=== PATIENT | female | born 1985 | race Caucasian/White ===

== ENCOUNTER → 2016-04-24 | Outpatient (CLI) | payer OTHER ==
--- NOTE | 2016-04-24 12:07 | REP ---
First trimester OB sonography: History: Supervision of . Findings: Transabdominal and transvaginal scanning are performed. A single living intrauterine gestation is seen. The crown-rump length of the embryonic pole is 26 mm. This corresponds with a gestational age estimate of 9 weeks 2 days. heart rate is recorded at 163 beats per minute. There is a right maternal ovarian cyst seen consistent with corpus luteum cyst. This measures 19 mm. No complication is identified. Impression: Viable single intrauterine gestation at 9 weeks 2 days by crown-rump length. MARYANA by sonography November 25, 2016. Signed by Duane Greenberg MD 04/24/2016 03:09 P
== END ==
LOC: M RAD 10:21
PROVIDERS: ATTEND Obstetrics & Gynecology
DX: Z36 Encounter for antenatal screening of mother (principal)

== ENCOUNTER → 2016-06-06 | Outpatient (CLI) | payer OTHER ==
--- NOTE | 2016-06-06 20:24 | ECGEPIP ---
Stationary ECG Study [facility] Test Date: 2016-06-06 Pat Name: MAGDI POLANCO Department: Room: - Gender: F Assistant Elementary Teacher: GENIA : 1985 Requested By: ARIE Turner Order Number: [id number] Reading MD: Mark Malone Measurements Intervals [place] Rate: 83 P: 57 CO: 120 QRS: 60 QRSD: 97 T: 51 QT: 378 QTc: 445 Interpretive Statements SINUS RHYTHM Nonspecific ST abnormalities Significant artifact Comparison tracing not on file Electronically Signed On 06-06-2016 20:24:21 EST by Mark Malone
== END ==
LOC: M EKG 10:29
PROVIDERS: ATTEND Student in an Organized Health Care Education/Training Program

== ENCOUNTER 2016-11-14 11:34 | Inpatient (IN) | payer OTHER ==
[2016-11-14] VITALS (8 sets, daily range): BP systolic 129–143; BP diastolic 76–100
[~2016-11-14] VITALS: Ht 162.6 cm; Wt 114.0 kg
[~2016-11-14 11:34] MED LIST: INSUH10VL SC; INSUN SC; LEXA1TAB2 PO; PRENTAB55 PO; RANI150C PO; TRAZ-136 PO; TYLE325C PO
[2016-11-14] MEDS ORDERED: LR 1,000 ML IV SCH ×2 (13:00→21:00)
[2016-11-14] MEDS ORDERED: LACTATED RINGER'S 1000 ML IV STA (13:06)
[2016-11-14] MEDS ORDERED: BICITRA 30ML SOLN UDC PO ONE (13:15)
--- NOTE | 2016-11-14 13:30 | IPNPDOC ---
Text Note Date of Service The patient was seen on 11/14/16. NOTE admit note. See H&P in chart done yesterday by Dr Miranda Mrs Zarco is currently at 38+3 and yesterday was ruled in for pre-eclampsia without severe features. She has 2 prior deliveries and moderately controlled GDMA2 on insulin. She has not had any insulin today and her BS just now was 61 and she feels well, has had nl FM throughout the day today and only rare ctx's. She also has well controlled depression/anxiety on lexapro and trazadone. BP is now 130/81. She plans to nurse if she can. She is a nonsmoker and has had no drugs or etoh this . NKDA. Consent obtained for ERCS + BTL that will be done later today. Sessions MD REEVES,CHUN Johansen MD Nov 14, 2016 13:30
[2016-11-14 13:50] LABS: MEAN CORPUSCULAR HEMOGLOBIN 26.7 pg (27.0-33.0); MEAN CORPUSCULAR HGB CONC 32.8 g/dl (32.0-36.5); MEAN CORPUSCULAR VOLUME 81.3 fl (80.0-96.0); RED CELL DISTRIBUTION WIDTH 16.1 % (11.5-14.5); WHITE BLOOD COUNT 10.3 K/mm3 (4.0-10.0)
[2016-11-14] MEDS ORDERED: MORPHINE PRES-FREE INJ 10 MG/10 ML VIAL (J2274) As Ordered ONE (17:43)
[2016-11-14] MEDS ORDERED: OXYTOCIN INJ 10 UNITS/ML VIAL (J2590) As Ordered ONE (17:44)
[2016-11-14] MEDS ORDERED: KETOROLAC 60 MG/2 ML VIAL (J1885) As Ordered ONE (17:56)
[2016-11-14] MEDS ORDERED: ONDANSETRON 4MG/2ML VIAL (J2405) As Ordered ONE (17:56)
[2016-11-14] MEDS ORDERED: METOCLOPRAMIDE INJ 10MG/2ML VIAL (J2765) IV PRN ×2 (18:57→21:00)
[2016-11-14] MEDS ORDERED: NALBUPHINE HCL 10 MG/ML AMP (J2300) IV PRN (18:57)
[2016-11-14] MEDS ORDERED: NALOXONE INJ 0.4 MG/1 ML VIAL (J2310) IV PRN ×2 (18:57)
[2016-11-14] MEDS ORDERED: ONDANSETRON 4MG/2ML VIAL (J2405) IV PRN ×2 (18:57→21:00)
[2016-11-14] MEDS ORDERED: PHENYLephrine HCL 500 MCG/5 ML (100MCG/ML) SYRINGE (J2370) As Ordered ONE (19:22)
[2016-11-14] MEDS ORDERED: ePHEDrine SULFATE 25 MG/5 ML(5MG/ML) SYRINGE As Ordered ONE (19:22)
[2016-11-14] MEDS ORDERED: OXYTOCIN 30 UNITS IN 0.9% NaCl 500ML IV BAG (J2590) As Ordered ONE (20:04)
[2016-11-14] MEDS: LR 1,000 ML IV SCH (20:04)
[2016-11-14] MEDS ORDERED: MEASLES,MUMPS,RUBELLA VACCINE INJ (MMR-II) (90707) SC SCH (20:15)
[2016-11-14] MEDS ORDERED: PERCOCET 5MG/325MG TAB PO PRN ×3 (20:15→21:00)
[2016-11-14] MEDS ORDERED: RHOGAM 300 MCG (1500 IU) INJ (J2790) IM SCH (20:15)
[2016-11-14] MEDS: DOCUSATE SODIUM 100 MG CAP PO SCH (21:00)
[2016-11-14] MEDS ORDERED: fentaNYL 100 MCG/2 ML INJECTION (J3010) IV PRN (21:00)
[2016-11-15] VITALS (7 sets, daily range): BP systolic 126–146; BP diastolic 66–88
[2016-11-15] MEDS: KETOROLAC 30 MG/ML VIAL (J1885) IV SCH ×4 (02:29→17:30)
[2016-11-15] MEDS: LR 1,000 ML IV SCH (02:31)
[2016-11-15 07:16] LABS: MEAN CORPUSCULAR HEMOGLOBIN 26.4 pg (27.0-33.0); MEAN CORPUSCULAR HGB CONC 32.2 g/dl (32.0-36.5); WHITE BLOOD COUNT 10.7 K/mm3 (4.0-10.0)
--- NOTE | 2016-11-15 07:58 | IPNPDOC ---
Text Note Date of Service The patient was seen on 11/15/16. NOTE POD1 prog note States feeling well, no complaints. No heavy VB. Pain controlled. Ambulatory. Centeno in place. Bonding well and breast feeding well. VSSAF CTAB RRR Ut at U-2, firm Ext no [employer] CDI, bandage removed UO adeq HCT this AM 31.2 DS this AM after clears overnight 117 a/p: Doing well. Metformin 500 BID to be started soon. Cont QID sugars, fasting and 2 hrs after each meal. Sessions Lucila GARNETT, I+O VSLucila I+O Laboratory Tests 11/14/16 13:27 Red Blood Count 4.22, Mean Corpuscular Volume 81.3, Mean Corpuscular Hemoglobin 26.7 L, Mean Corpuscular Hemoglobin Concent 32.8, Red Cell Distribution Width 16.1 H 11/15/16 06:57 Red Blood Count 3.80 L, Mean Corpuscular Volume 82.0, Mean Corpuscular Hemoglobin 26.4 L, Mean Corpuscular Hemoglobin Concent 32.2, Red Cell Distribution Width 16.0 H Vital Signs Date Time Temp Pulse Resp B/P (MAP) Pulse Ox O2 Delivery O2 Flow Rate FiO2 11/15/16 05:50 96.4 103 16 138/80 (99) 96 Room Air I&O- Last 24 Hours up to 6 AM 11/15/16 06:00 Output Total 1250 ml Balance -1250 ml SESSIONS,CHUN Johansen MD Nov 15, 2016 07:58
[2016-11-15] MEDS: DOCUSATE SODIUM 100 MG CAP PO SCH ×2 (08:27→21:24)
[2016-11-15] MEDS: ESCITALOPRAM OXALATE 10 MG TAB (LEXAPRO) PO SCH (08:28)
[2016-11-15] MEDS: metFORMIN (GLUCOPHAGE) 500 MG TAB PO SCH ×2 (08:28→17:30)
[2016-11-15] MEDS: PRENATAL VITAMINS CHEWABLE TABLET PO SCH (08:28)
[2016-11-15] MEDS ORDERED: traZODone 100 MG TAB PO SCH (21:00)
[2016-11-16] MEDS: IBUPROFEN 800 MG TAB PO SCH ×2 (01:44→08:07)
[2016-11-16 05:55] VITALS: BP 136/84
[2016-11-16] MEDS: DOCUSATE SODIUM 100 MG CAP PO SCH (08:06)
[2016-11-16] MEDS: ESCITALOPRAM OXALATE 10 MG TAB (LEXAPRO) PO SCH (08:06)
[2016-11-16] MEDS: PRENATAL VITAMINS CHEWABLE TABLET PO SCH (08:06)
[2016-11-16] MEDS: metFORMIN (GLUCOPHAGE) 500 MG TAB PO SCH (08:07)
--- NOTE | 2016-11-16 08:39 | RO ---
DATE OF PROCEDURE: 11/14/2016 PREPROCEDURE DIAGNOSIS: section times two, preeclampsia with mild features diagnosed yesterday, type 2 insulin-dependent diabetes mellitus. POSTPROCEDURE DIAGNOSIS: section times two, preeclampsia with mild features diagnosed yesterday, type 2 insulin-dependent diabetes mellitus. PROCEDURE: Elective repeat section plus tubal ligation. SURGEON: Dr. Thierno Schwartz POWER TRANSFORMER REPAIR SUPERVISOR: Dr. Kayleigh Hood ANESTHESIA: Spinal. ESTIMATED BLOOD LOSS: 500 mL. DRAINS: 100 mL of urine in the Centeno catheter. FLUID REPLACED: 200 mL of D5 LR and 1100 mL of lactated Ringer's. PREOPERATIVE ANTIBIOTICS: Ancef 2 grams IV. SPECIMENS: Bilateral tubal segments. FINDINGS: Pfannenstiel skin incision, low transverse uterine incision, clear fluid, female infant weighing 4628 grams or 10 pounds 3 ounces, scores 9 and 9. INDICATIONS FOR PROCEDURE: The patient was scheduled for a repeat section and tubal ligation next week when she was 39 weeks. Today, she was 38 weeks and 3 days (38 and 3), was diagnosed with preeclampsia without severe features yesterday and was scheduled for this procedure after informed consent was obtained. Dr. Miranda made the diagnosis and set up her delivery by myself, Dr. Schwartz. When the patient came to the sofia, her blood sugar was normal, her blood pressure was normal and informed consent was obtained by me, the operating surgeon. DESCRIPTION OF PROCEDURE: The patient was taken to the operating room with an IV in place and a spinal anesthetic was easily obtained. She was then placed in a dorsal supine position with a leftward tilt and heart tones were normal. A Centeno catheter was then placed as well as lower extremity compression devices. A check of her lower abdomen confirmed that the spinal was working and the patient's was retrieved from the room. Pfannenstiel skin incision was carried down to the layer of the fascia, which was nicked in the midline and extended bilaterally the extent of the skin incision. Gerard clamps were used to elevate the fascial edges both superiorly and inferiorly and the underlying rectus muscles were dissected sharply with a scalpel. Using two snaps, we were able to successively separate the rectus in the midline and identify the peritoneum, which was tented up and entered sharply with Metzenbaum scissors. A quick exploration of her inner abdomen revealed a moderate amount of scar tissue of the anterior uterus to the anterior abdominal wall. With meticulous sharp and blunt dissection, we were able to separate the lion's share of the adhesive disease and a bladder flap was created. There was a significantly large adhesion just above the uterine incision on the patient's right, which we did not have to separate before delivering the infant. A low transverse uterine incision was performed this time and stretched to adequacy without difficulty. Amniotomy confirmed clear fluid. Infant's head was delivered in flexed position without difficulty and fundal pressure helped to deliver the rest of the obviously macrosomic . The was rigorous from the beginning with a good cry and great tone. Cord blood was obtained after the cord was transected and clamped. The vigorous infant was shown to the parents and handed off to the waiting resuscitation team. Placenta was delivered with traction and fundal massage with Pitocin running wide open. Could not deliver the uterus through the abdominal incision to perform the tubal ligation without transecting the aforementioned thick adhesion. This was clamped times one and transected close to the uterus. The clamp was left on the adhesion and the uterus was delivered through the incision, wrapped in a warm sponge and cleared of all clots and debris times two, including all trailing membranes. A running suture of #0 Vicryl was used to close this incision from left to right in a running locked fashion. A running suture of #0 Monocryl was then used to imbricate a second layer over the uterine incision from left to right without difficulty as well. At this point, a [place] tubal ligation was performed on the right without difficulty and hemostasis was noted. This was repeated on the patient's left in the same exact fashion without difficulty. The uterine side of the aforementioned transected thick adhesion was cauterized a small amount and when hemostasis was noted, the uterus was returned to the abdomen into its anatomical state. We quickly inspected both tubal sites, confirmed they were hemostatic and then looked at the adhesion site, which was also confirmed to be hemostatic. We then tied off the adhesion that was still clamped, removed the clamp and confirmed that hemostasis was also noted from the uterine incision. There were too many omental adhesions to be able to close the peritoneum safely. Therefore, this was left open but there was very little diastasis present. The fascia was closed from left to right with a running suture of #0 Vicryl without difficulty after confirming the rectus bellies were all hemostatic. The subcutaneous tissue was copiously irrigated, made to be hemostatic and closed with a #2-0 Vicryl running suture to close this potential space. Skin was then closed with a #4-0 running subcuticular Monocryl stitch. Steri-Strips were placed over the incision as well as a pressure dressing. The uterus was at U -1 and firm upon bimanual exam and a small amount of clots and debris was removed from the vagina and cervix. All sponge, needle and instrument counts were correct and done anytime a cavity was about to be closed.
[2016-11-16] MEDS ORDERED: METF500T13 PO (11:32)
[2016-11-16] MEDS ORDERED: OXYC1TAB23 PO (11:32)
[2016-11-16] MEDS ORDERED: COLA100C5 PO (11:32)
[2016-11-16] MEDS ORDERED: MOTR200T44 PO (11:33)
--- NOTE | 2016-11-17 06:50 | DSES ---
DATE OF ADMISSION: 11/14/2016 DATE OF DISCHARGE: 11/16/2016 This lady is a 31-year-old 5 now para 3 who was admitted at 38 and 3weeks of gestation for elective repeat section. Satisfied parity with bilateral tubal ligation. Operative note is not available at the present time. She delivered a female 10 pounds 3 ounces, 4628 grams. of 9 and 9 and one and five minutes respectively. She is a GDMA2. Was on insulin but not pre-delivery. She is normally on metformin 500 twice a day. She has had two previous sections. Has depression, anxiety, is on Lexapro and trazodone and she is planned for discharge. Her admitting hemoglobin 11.3, hematocrit 34.3, platelets 258. Discharge hemoglobin 10.0, hematocrit 31.2 platelets are 188. Her vital signs today: Her blood pressure is 136/84, they range about 141/86, 140/74. Temperature 96.9, pulse is 81, respirations are 20. She has had some spot sugars which have all been within normal range, they range anywhere from 61-128 and essentially they have been relatively good and the patient understands her condition and she is happy to continue on with her metformin. The rest of the examination is unremarkable. She is normocephalic, atraumatic. Neck: Full range of motion. Pupils equal and reactive to light. Distal pulses symmetric. No evidence of DVT, PE or superficial phlebitis. Lungs are clear bilaterally bases. No wheezes or rhonchi. No CVA tenderness. Abdomen soft, uterus two below. Lochia is moderate. Incision is clean and dry. Four quadrant bowel sounds are noted. She has no rashes, lesions or pruritus. No arthralgia, myalgia. No complaints of cough, wheezes, shortness of breath or dyspnea on exertion. No chest pain. No bleeding. Neuro complete. No incontinency, urgency or frequency. No nausea, vomiting, diarrhea, constipation. Diabetic issues as mentioned. No PBX REPAIRER issues. PAST SURGICAL HISTORY: Two previous sections. FAMILY HISTORY: Noncontributory. She does not smoke, drink, abuse drugs. There is no domestic violence. She is presently planning and doing breast-feeding. She has her medications at home, has a 2-week incision check, a 6-week check. The patient is to be discharged today and follow up given for baby as well as a planned visit in 2 weeks for incision check and repeat of her blood sugars at that time. In summary, we have a 38 and 3 week of gestation for repeat section, satisfied parity, tubal ligation, controlled GDMA2. Discharge improved.
== END 2016-11-16 11:50 | disposition home or self-care (01) | DRG 766 ==
LOC: M LDI 11:34 → M OBS 22:10
PROVIDERS: ADMIT Student in an Organized Health Care Education/Training Program; ATTEND Student in an Organized Health Care Education/Training Program
PROC: 0UB70ZZ Excision of Bilateral Fallopian Tubes, Open Approach (ICD-10-PCS; 2016-11-14)
PROC: 10D00Z1 Extraction of Products of Conception, Low, Open Approach (ICD-10-PCS; principal; 2016-11-14 15:15)
DX: O34.211 Maternal care for low transverse scar from previous cesarean delivery (principal); Z37.0 Single live birth; Z3A.38 38 weeks gestation of pregnancy; Z30.2 Encounter for sterilization; O24.425 Gestational diabetes mellitus in childbirth, controlled by oral hypoglycemic drugs; F41.9 Anxiety disorder, unspecified; F32.9 Major depressive disorder, single episode, unspecified; O99.344 Other mental disorders complicating childbirth; O14.04 Mild to moderate pre-eclampsia, complicating childbirth

== ENCOUNTER → 2017-07-02 | Outpatient (REF) | payer OTHER | LOC: M SFHCLERA 18:21 | DX: O86.4 Pyrexia of unknown origin following delivery (principal) ==